=== PATIENT | male | born 1930 | race Caucasian/White ===

== ENCOUNTER 2016-10-02 05:26 | Emergency (ER) | payer MEDICARE ==
[2016-10-02 05:10] LABS: ASCORBIC ACID (UR NOT ORDER) NEG (NEG); BILIRUBIN, URINE NEGATIVE (NEG); ER URINALYSIS TAT 0 Hrs 00 Mins; KETONE, URINE TRACE MG/DL (NEG); LEUKOCYTE ESTERASE(NOT OR NEG (NEG); NITRITE (URINE) NEG (NEG); WBC (NOT ORDERED) (RFLEX) 1 (0-5)
[~2016-10-02 05:26] MED LIST: ADVIL PO; ASAB PO; MEVACOR PO; MIRALAXPKT PO; MOMUD PO; NATURA2 OP; NEUPRO 6MG6 MG/24 HR TOP; PROAM25 PO; PROAMAT5 PO; RITALIN10 PO; SIN25 PO; VITAMIN D1000 UNI1 PO
[2016-10-02 06:12] LABS: BASOPHILS 0.2 %; BASOPHILS ABSOLUTE 0.01 10/3/uL (0.0-0.16); EOSINOPHILS 27.3 %; HEMATOCRIT 39.4 % (40.0-51.0); HEMOGLOBIN 13.1 g/dL (13.6-17.8); IMMATURE GRANULOCYTES 0.2 %; IMMATURE GRANULOCYTES ABSOLUTE 0.01 10/3/uL (0.0-0.11); LYMPHOCYTES 16.5 %; LYMPHOCYTES ABSOLUTE 1.09 10/3/uL (0.67-4.30); MEAN CORPUS HGB CONC 33.2 g/dL (32.0-36.0); MEAN CORPUSCULAR HEMOGLOB 31.3 pg (26.0-34.0); MEAN PLATELET VOLUME 10.1 fL (9.2-13.0); MONOCYTES ABSOLUTE 0.53 10/3/uL (0.21-1.20); NEUTROPHILS 47.8 %; NEUTROPHILS ABSOLUTE 3.16 10/3/uL (2.02-8.40); PLATELET COUNT 162 10/3/uL (150-400); RBC DISTRIBUTION WIDTH 13.8 % (12.0-16.0); RED CELL COUNT 4.18 10/6/uL (4.7-6.1); WHITE BLOOD CELLS 6.6 10/3/uL (4.5-10.5)
[2016-10-02 06:14] LABS: MANUAL DIFF NO %; MEAN CORPUSCULAR VOLUME 94.3 fL (80-100)
[2016-10-02 06:36] LABS: A/G RATIO 0.8 (0.7-1.9); ALBUMIN 3.1 G/DL (3.5-5.0); ALKALINE PHOSPHATASE 190 U/L (45-117); BUN (BLOOD UREA NITROGEN) 19 MG/DL (6-23); CALCIUM, SERUM 8.8 MG/DL (8.5-10.4); CHLORIDE, SERUM 110 MMOL/L (96-112); CO2 (CARBON DIOXIDE) 25 MMOL/L (24-34); CREATININE 1.02 MG/DL (0.70-1.30); GFR AFRICAN AMERICAN 77 ML/MIN (>=60); GFR NON AFRICAN AMERICAN 66 ML/MIN (>=60); GLUCOSE, SERUM 96 MG/DL (60-99); SGOT(AST) 27 U/L (5-40); SGPT(ALT) 10 U/L (5-65); SODIUM, SERUM 142 MMOL/L (135-148); TOTAL BILIRUBIN 0.6 MG/DL (0-1.2); TOTAL PROTEIN 7.1 G/DL (6.0-8.5)
[2016-11-23] MEDS ORDERED: PROTONIX PO (15:14)
[2016-11-23] MEDS ORDERED: SIN25 PO (15:15)
[2016-11-23] MEDS ORDERED: METADATE CD10 MG PO (15:16)
[2016-11-23] MEDS ORDERED: PROAM25 PO ×3 (15:17→15:18)
[2016-11-23] MEDS ORDERED: AZILECT1 MG PO (15:17)
[2016-11-23] MEDS ORDERED: DEPAKOTEER PO (15:19)
[2016-11-23] MEDS ORDERED: NEUPRO 6MG6 MG/24 HR TOP (15:22)
[2016-11-23] MEDS ORDERED: REM15 PO (15:23)
[2016-11-23] MEDS ORDERED: MIRALAX POWDER1 PKT PO (15:24)
[2016-11-23] MEDS ORDERED: ARICEPT10 PO (15:24)
[2016-11-23] MEDS ORDERED: HALF81 PO (15:25)
[2016-11-23] MEDS ORDERED: CYANO1000T PO (15:25)
[2016-11-23] MEDS ORDERED: VITAMIN D1000 UNI1 PO (15:26)
== END 2016-10-02 08:21 | disposition home or self-care (01) ==
LOC: ER 05:26
PROVIDERS: Specialist
DX: R29.898 Other symptoms and signs involving the musculoskeletal system (principal); G20 Parkinson's disease; Z95.1 Presence of aortocoronary bypass graft; Z79.82 Long term (current) use of aspirin; Z79.899 Other long term (current) drug therapy
CPT/HCPCS: 80053; 81001; 84443; 85025; 93005; 99285